=== PATIENT | female | born 1970 | race Caucasian/White ===

== ENCOUNTER 2020-05-27 13:49 | Emergency (ER) | payer MEDICAID ==
[~2020-05-27] VITALS: Ht 154.9 cm; Wt 60.5 kg
[2020-05-27 16:49] LABS: BASOPHILS # (AUTO) 0.1 X10'3 (0-0.2); BASOPHILS % (AUTO) 1.1 % (0-1); EOSINOPHILS # (AUTO) 0.2 X10'3 (0-0.9); EOSINOPHILS % (AUTO) 3.2 % (0-6); HEMATOCRIT 42.8 % (35.0-45.0); HEMOGLOBIN 14.6 g/dl (12.0-16.0); LYMPHOCYTES # (AUTO) 1.8 X10'3 (1.1-4.8); LYMPHOCYTES % (AUTO) 32.8 % (21-51); MEAN CORPUSCULAR HEMOGLOBIN 31.3 PG (27.0-31.0); MEAN CORPUSCULAR HGB CONC 34.2 g/dL (33.0-36.5); MEAN CORPUSCULAR VOLUME 91.7 FL (78-98); MEAN PLATELET VOLUME 7.7 FL (7.4-10.4); MONOCYTES # (AUTO) 0.4 X10'3 (0-0.9); MONOCYTES % (AUTO) 8.1 % (2-12); NEUTROPHILS # (AUTO) 2.9 X10'3 (1.8-7.7); NEUTROPHILS % (AUTO) 54.8 % (42-75); PLATELET COUNT 291 X10'3 (140-440); RED BLOOD COUNT 4.67 X10'6 (4.20-5.60); RED CELL DISTRIBUTION WIDTH 12.9 % (11.5-14.5); WHITE BLOOD COUNT 5.3 X10'3 (4.5-11.0)
[2020-05-27 17:03] LABS: ALANINE AMINOTRANSFERASE 19 U/L (12-78); ALBUMIN 4.4 G/DL (3.4-5.0); ALBUMIN/GLOBULIN RATIO 1.2 (1.1-1.5); ALKALINE PHOSPHATASE 59 IU/L (46-116); ANION GAP 10 (8-16); ASPARTATE AMINO TRANSFERASE 16 U/L (10-37); BILIRUBIN,TOTAL 0.4 MG/DL (0.1-1.0); BLOOD UREA NITROGEN 12 MG/DL (7-18); BUN/CREATININE RATIO 15.6 (6.6-38.0); CHLORIDE 104 MMOL/L (99-107); CREATININE 0.77 MG/DL (0.40-0.90); GLUCOSE 88 MG/DL (70-104); MAGNESIUM 2.2 MG/DL (1.5-2.4); POTASSIUM 4.5 MMOL/L (3.5-5.1); SODIUM 142 MMOL/L (135-145); TOTAL CARBON DIOXIDE 27.9 MMOL/L (24-32); eGFR 80 ML/MIN
[2020-05-27] MEDS ORDERED: metoclopramide 5 mg/ml inj IV ONE (17:05)
--- NOTE | 2020-05-27 17:36 | NUR ---
patient to ct.
[2020-05-27] MEDS ORDERED: MECL-159 PO (18:41)
[2020-05-27 19:09] VITALS: BP 112/77
== END 2020-05-27 19:10 | disposition home or self-care (01) ==
LOC: ER 13:51
DX: R42 Dizziness and giddiness (principal); R53.1 Weakness; R51 Headache; Z72.89 Other problems related to lifestyle; Z79.899 Other long term (current) drug therapy
CPT/HCPCS: 36415; 70450; 80053; 83735; 85025; 93005; 96374; 99285; J2765

== ENCOUNTER 2022-04-30 12:09 | Emergency (ER) | payer MEDICAID ==
[~2022-04-30] VITALS: Ht 154.9 cm; Wt 70.0 kg
[~2022-04-30 12:09] MED LIST: MECL-159 PO
[2022-04-30 14:11] VITALS: BP 118/75
== END 2022-04-30 15:39 | disposition home or self-care (01) ==
LOC: ER 12:10
DX: R20.2 Paresthesia of skin (principal); Z72.89 Other problems related to lifestyle; Z79.899 Other long term (current) drug therapy
CPT/HCPCS: 70450; 99284

== ENCOUNTER 2025-03-01 15:36 | Emergency (ER) | payer MEDICAID ==
[~2025-03-01] VITALS: Ht 154.9 cm; Wt 61.7 kg
[~2025-03-01 15:36] MED LIST changes: -MECL-159 PO; +MECL-302 PO
[2025-03-01 15:46] VITALS: TEMP 97.8
[2025-03-01 16:27] LABS: BASOPHILS # (AUTO) 0.1 X10'3 (0-0.2); BASOPHILS % (AUTO) 1.2 % (0-1); EOSINOPHILS # (AUTO) 0.1 X10'3 (0-0.9); EOSINOPHILS % (AUTO) 1.9 % (0-6); HEMATOCRIT 39.9 % (35.0-45.0); HEMOGLOBIN 13.6 g/dl (12.0-16.0); LYMPHOCYTES # (AUTO) 1.8 X10'3 (1.1-4.8); LYMPHOCYTES % (AUTO) 39.7 % (21-51); MEAN CORPUSCULAR HEMOGLOBIN 30.2 PG (27.0-31.0); MEAN CORPUSCULAR VOLUME 88.8 FL (78-98); MEAN PLATELET VOLUME 7.9 FL (7.4-10.4); MONOCYTES # (AUTO) 0.4 X10'3 (0-0.9); MONOCYTES % (AUTO) 8.6 % (2-12); NEUTROPHILS # (AUTO) 2.2 X10'3 (1.8-7.7); NEUTROPHILS % (AUTO) 48.6 % (42-75); PLATELET COUNT 304 X10'3 (140-440); RED BLOOD COUNT 4.49 X10'6 (4.20-5.60); RED CELL DISTRIBUTION WIDTH 13.2 % (11.5-14.5); WHITE BLOOD COUNT 4.4 X10'3 (4.5-11.0)
[2025-03-01 16:35] LABS: ALANINE AMINOTRANSFERASE 43 U/L (12-78); ALBUMIN 4.3 G/DL (3.4-5.0); ALBUMIN/GLOBULIN RATIO 1.3 (1.1-1.5); ALKALINE PHOSPHATASE 76 IU/L (46-116); ANION GAP 8 (8-16); ASPARTATE AMINO TRANSFERASE 21 U/L (10-37); BILIRUBIN,TOTAL 0.5 MG/DL (0.1-1.0); BLOOD UREA NITROGEN 11 MG/DL (7-18); BUN/CREATININE RATIO 17.5 (10.0-20.0); CALCIUM 8.9 MG/DL (8.5-10.1); CHLORIDE 105 MMOL/L (99-107); CREATININE 0.63 MG/DL (0.40-0.90); GLUCOSE 97 MG/DL (70-104); POTASSIUM 3.8 MMOL/L (3.5-5.1); SODIUM 141 MMOL/L (135-145); TOTAL CARBON DIOXIDE 28.5 MMOL/L (24-32); TOTAL PROTEIN 7.5 G/DL (6.4-8.2); eCRCL 78 ML/MIN; eGFR > 90 ML/MIN
[2025-03-01 16:44] LABS: PRO BRAIN NATRIURETIC PEPTIDE 41 PG/ML (0-125)
[2025-03-01 17:13] LABS: D-DIMER < 0.19 MG/L FEU (0-0.50)
[2025-03-01] MEDS: ketorolac trometh 15mg/ml vial 15 MG/ML ML IV ONE (19:38)
[2025-03-01 19:41] VITALS: BP 119/80; PULSE 77; RESP 16; O2SAT 100
== END 2025-03-01 19:43 | disposition home or self-care (01) ==
LOC: ER 15:36
DX: R06.00 Dyspnea, unspecified (principal)
CPT/HCPCS: 36415; 71045; 80053; 83880; 84484; 85025; 85379; 93005; 96374; 99285; J1885

== ENCOUNTER 2025-03-12 15:11 | Emergency (ER) | payer MEDICAID ==
[~2025-03-12] VITALS: Ht 154.9 cm; Wt 60.6 kg
[2025-03-12 16:32] LABS: BASOPHILS % (AUTO) 0.8 % (0-1); HEMATOCRIT 41.9 % (35.0-45.0); HEMOGLOBIN 14.2 g/dl (12.0-16.0); LYMPHOCYTES # (AUTO) 1.1 X10'3 (1.1-4.8); LYMPHOCYTES % (AUTO) 27.8 % (21-51); MEAN CORPUSCULAR HEMOGLOBIN 29.8 PG (27.0-31.0); MEAN CORPUSCULAR VOLUME 87.8 FL (78-98); MEAN PLATELET VOLUME 7.6 FL (7.4-10.4); MONOCYTES # (AUTO) 0.5 X10'3 (0-0.9); MONOCYTES % (AUTO) 12.9 % (2-12); NEUTROPHILS # (AUTO) 2.2 X10'3 (1.8-7.7); NEUTROPHILS % (AUTO) 57.5 % (42-75); PLATELET COUNT 200 X10'3 (140-440); RED BLOOD COUNT 4.77 X10'6 (4.20-5.60); RED CELL DISTRIBUTION WIDTH 12.9 % (11.5-14.5); WHITE BLOOD COUNT 3.9 X10'3 (4.5-11.0)
[2025-03-12 16:36] LABS: ALANINE AMINOTRANSFERASE 39 U/L (12-78); ALBUMIN 4.4 G/DL (3.4-5.0); ALBUMIN/GLOBULIN RATIO 1.4 (1.1-1.5); ALKALINE PHOSPHATASE 86 IU/L (46-116); ANION GAP 9 (8-16); ASPARTATE AMINO TRANSFERASE 25 U/L (10-37); BILIRUBIN,TOTAL 0.5 MG/DL (0.1-1.0); BLOOD UREA NITROGEN 9 MG/DL (7-18); BUN/CREATININE RATIO 12.9 (10.0-20.0); CALCIUM 9.1 MG/DL (8.5-10.1); CHLORIDE 102 MMOL/L (99-107); GLUCOSE 99 MG/DL (70-104); POTASSIUM 4.1 MMOL/L (3.5-5.1); SODIUM 141 MMOL/L (135-145); TOTAL PROTEIN 7.5 G/DL (6.4-8.2); eCRCL 70 ML/MIN; eGFR 88 ML/MIN
[2025-03-12] MEDS ORDERED: LORA-269 PO (18:20)
[2025-03-12 18:47] VITALS: BP 114/73; PULSE 70; RESP 16; TEMP 97.8; O2SAT 96
== END 2025-03-12 18:55 | disposition home or self-care (01) ==
LOC: ER 15:12
DX: R13.10 Dysphagia, unspecified (principal)
CPT/HCPCS: 36415; 70360; 71045; 80053; 85025; 85651; 99284

== ENCOUNTER 2025-05-13 20:50 | Emergency (ER) | payer MEDICAID ==
[~2025-05-13] VITALS: Ht 154.9 cm; Wt 61.4 kg
[~2025-05-13 20:50] MED LIST changes: +LORA-269 PO
[2025-05-13 20:53] VITALS: BP 130/85; PULSE 88; RESP 18; O2SAT 98
[2025-05-13] MEDS: LIDOcaine 1% W/epiNEPHrine 1:100,000 20ml vial SQ STA (21:03)
--- NOTE | 2025-05-13 23:16 | Physician Documentation ---
History of Present Illness ~ Chief Complaint: Laceration Stated Complaint: HAND LAC Time Seen by MD: 21:01 Primary Medical Doctor: Prudencio Escobar. Source: patient, family HPI Patient is seen today with complaints of laceration to her left palm on the ulnar aspect proximally 3 cm in length. Patient states she was cutting an avocado with a new knife and accidentally cut her palm. She has no other concern or complaint at this time. Tetanus Within 5 Years: No Medication Reconciliation Allergies: Coded Allergies: No Known Allergies (Unverified , 05/13/25) Scheduled Meclizine HCl (Meclizine HCl), 1 TAB PO Q6H Scheduled PRN Lorazepam (Ativan), 1 TAB PO Q12H PRN PRN for anxiety Past Medical History Past Medical History: No Pertinent History Past Surgical History: no surgical history Alcohol Use: Occasionally Drug Use: none Lives with: Family Lives In: Home Occupation: employed Review of Systems Constitutional: Denies: chills, fever, weakness Eyes: Denies: pain, blurred vision ENT: Denies: ear pain, nose pain, throat pain, mouth pain Respiratory: Denies: cough, shortness of breath Cardiovascular: Denies: chest pain, palpitations Gastrointestinal: Denies: abdominal pain, nausea, vomiting Genitourinary: Denies: burning, dysuria Female Genitalia: Denies: vaginal discharge, pelvic pain Neurological: Denies: headache, dizziness Musculoskeletal: Denies: pain, swelling Integumentary: Denies: rash, lesions Allergic/Immunologic: Denies: hives, itching Hematologic/Lymphatic: Denies: no symptoms reported Psychiatric: Denies: depression, anxiety Physical Exam Vital Signs: Temperature: 98.7, Source: Oral, Heart Rate: 88, Respiratory Rate: 18, BP: 130/85, Pulse Oximetry: 98, Weight: 61.360 Physical Exam General: Awake and Alert, no acute distress. HEENT: Conjunctiva pink, Sclera clear, Mucus Membranes moist. Neck: Supple without masses and tenderness. Resp: Unlabored. Lungs clear to auscultation bilaterally. Heart: Regular Rate and rhythm, normal S1 and S2 without murmur, rub or gallop. Musculoskeletal: Patient on exam is neurovascularly intact distally of the left and right upper extremities, motor function intact distally. Patient does have a 3 cm laceration to the ulnar aspect of the palm of her left hand. No significant active bleeding. Extremities: No cyanosis,clubbing or edema. Skin: Warm and Dry. Procedures Laceration/Wound Repair Laceration : Procedure Note Procedure note: 4 cc of 1% lidocaine with epinephrine was used to achieve local anesthesia of the 3 cm laceration of the left palm. Wound was irrigated with copious amounts of normal saline and iodine. Patient tolerated well. Four horizontal mattress sutures using 5-0 Ethilon was used to achieve closure of the laceration. Patient tolerated well. Adhesive bandage was nonstick dressing placed over repair site. Progress Results/Orders Results/Orders Completed Orders - SPENSER EDMONDSON Lidocaine 1% W/Epi 1:100,000 (Xylocaine (05/13/25 21:03) Vital Signs 05/13/25 20:53 Temp 98.7 Pulse 88 Resp 18 B/P (MAP) 130/85 Pulse Ox 98 Medical Decision Making Findings Patient is seen today with complaints of laceration to her left palm on the ulnar aspect proximally 3 cm in length. Patient states she was cutting an avocado with a new knife and accidentally cut her palm. She has no other concern or complaint at this time. Four horizontal mattress sutures were used to achieve closure of the 3 cm laceration to the left palm. Patient tolerated well. Patient will have sutures removed in 7-10 days. Patient will return to ED with any worsening, concerning or changing symptoms. Departure Disposition: 01 HOME / SELF CARE / HOMELESS Impression: Primary Impression: Laceration Condition: Improved Discharge Instructions: Laceration Care, Adult, [id number] Additional Instructions: Four horizontal mattress sutures were used to achieve closure of the 3 cm laceration to the left palm. Patient tolerated well. Patient will have sutures removed in 7-10 days. Patient will return to ED with any worsening, concerning or changing symptoms. Referrals: NO PRIMARY CARE PROVIDER (PCP) Signature Scribe Signature: No scribe Attestation: No scribe SPENSER EDMONDSON May 13, 2025 23:15
[2025-05-13 23:34] VITALS: TEMP 98.7
== END 2025-05-13 23:38 | disposition home or self-care (01) ==
LOC: ER 20:51
DX: S61.412A Laceration without foreign body of left hand, initial encounter (principal); Z79.899 Other long term (current) drug therapy; W26.0XXA Contact with knife, initial encounter; Y93.89 Activity, other specified; Y92.89 Other specified places as the place of occurrence of the external cause; Y99.8 Other external cause status
CPT/HCPCS: 12002; 99282